=== PATIENT | female | born 1965 | race Caucasian/White ===

== ENCOUNTER 2019-02-06 14:38 | Emergency (ER) | payer OTHER ==
[2019-02-06] MEDS ORDERED: HYDROmorphONE/DILAUDID 2 MG/ML INJ IVP ONE (15:37)
--- NOTE | 2019-02-06 17:00 | EDPHY ---
H & P Stated Complaint: fell down stairs, right ankle pain/swelling Time Seen by Provider: 02/06/19 14:45 HPI/ROS: Chief complaint: Right foot and ankle injury History of present illness: This is a 53-year-old female brought to the emergency department by EMS for evaluation of right foot and ankle injury. Patient was walking down steps into her basement, they are very steep steps, she lost her balance and slipped down them striking her heel against the ground. Since then she has had severe pain. She does not want move the ankle secondary to the pain. She also sustained some scrapes to her arms and legs. She denies pain or trauma to the rest of the body including head, neck, back, chest, abdomen, pelvis or other extremities. Review of systems: A 10 point review of systems was obtained and other than described above was negative. - Personal History Current Tetanus Diphtheria and Acellular Pertussis (TDAP): Unsure - Medical/Surgical History Hx Asthma: No Hx Chronic Respiratory Disease: No Hx Diabetes: No Hx Cardiac Disease: No Hx Renal Disease: No Hx Cirrhosis: No Hx Alcoholism: No Hx HIV/AIDS: No Hx Splenectomy or Spleen Trauma: No Other PMH: tubal , hysterectomy, breast reduction - Social History Smoking Status: Never smoked - Physical Exam Exam: General Appearance: Alert, nontoxic Eyes: PERRLA Respiratory: Lungs clear to auscultation bilaterally Cardiac: Regular rate and rhythm. Gastrointestinal: Bowel sounds normal. Abdomen soft, nondistended, nontender. Neurological: Alert and oriented x4. Strength and sensation intact and symmetrical. Skin: Superficial abrasions to the arms and thighs, no repairable lesions. Musculoskeletal: The head is nontender. There is no crepitus, bony deformity or step-off. The cervical and thoracic spine are nontender without crepitus, bony deformity or step-off. Diffuse tenderness to the lumbar spine without crepitus, bony deformity step-off. Chest wall intact palpation. Upper extremities unremarkable. Mild tenderness to the proximal right lower leg as well as around the ankle. The rest the right lower extremities unremarkable. Constitutional: Initial Vital Signs Temperature (C) 36.7 C 02/06/19 14:45 Heart Rate 56 L 02/06/19 14:45 Respiratory Rate 18 02/06/19 14:45 Blood Pressure 141/89 H 02/06/19 14:45 O2 Sat (%) 95 02/06/19 14:45 O2 Delivery Mode Room Air Allergies/Adverse Reactions: iodine Allergy (Verified 02/06/19 14:45) latex Allergy (Verified 02/06/19 14:45) Home Medications: Medication Instructions Recorded Hydrocodone/APAP [Mindoro 1 tab PO Q6H #15 tab 02/06/19 5/325 (*)] Zithromax 02/06/19 Medical Decision Making - Diagnostics Imaging Results: Imaging Impressions Ankle X-Ray 02/06/19 14:42 Impression: 1. Dorsolateral soft tissue swelling. 2. Fractures involving the calcaneus, as-detailed. There is still preservation of Boehler's angle. Findings were discussed with Elvis Forrester PA-C at 15:11, on 02/06/2019. Lumbar Spine X-Ray 02/06/19 15:35 Impression: 1. No evidence of a lumbar spine fracture or subluxation. 2. Evaluation of the distal coccyx limited by overlying bowel gas and body habitus. Remainder of the sacrum and coccyx appears intact. Sacrum and Coccyx X-Ray 02/06/19 15:35 Impression: 1. No evidence of a lumbar spine fracture or subluxation. 2. Evaluation of the distal coccyx limited by overlying bowel gas and body habitus. Remainder of the sacrum and coccyx appears intact. Tibia/Fibula X-Ray 02/06/19 15:36 Impression: 1. No acute fracture or dislocation the tibia/fibula. 2. Complex fracture of the calcaneus. Imaging: Discussed imaging studies w/ photonics technician Radiologist Procedures: Procedure: Splint placement. A posterior short-leg splint was applied. After application of the splint I returned and re-examined the patient. The splint was adequately immobilizing the joint and distal to the splint the patient's circulation and sensation was intact. ED Course/Re-evaluation: Patient seen under the supervision of my secondary supervising physician Dr. Emerson Singh. Patient presents for a right ankle injury. She appears to have a calcaneal fracture. Her foot is neurovascularly intact. Mild discomfort at other sites of the body x-rayed and unremarkable. By history and physical exam no evidence of further significant trauma. I have consulted with on-call orthopedics, Dr. Rocha's physician medical office receptionist assistant Don. He has reviewed x-rays. He is recommending a posterior short-leg splint. Patient can follow up in clinic in a week. I have discussed this with patient. She is splinted, she is able to get around on crutches. She understands she needs to be absolutely nonweightbearing. Home care is discussed including pain management. Return precautions are given. Differential Diagnosis: Included but not limited to contusion, sprain or strain, bony fracture, doubtful spinal cord injury - Data Points Medications Given: Discontinued Medications Hydrocodone Bitart/Acetaminophen (Mindoro 5/325mg Prepack#6) 1 btl TAKEHOME EDNOW ONE Stop: 02/06/19 17:33 Last Admin: 02/06/19 17:44 Dose: 1 btl Hydromorphone HCl (Dilaudid) 0.5 mg IVP EDNOW ONE Stop: 02/06/19 15:38 Last Admin: 02/06/19 15:42 Dose: 0.5 mg Departure - Departure Disposition: Home, Routine, Self-Care Clinical Impression: Fracture closed, calcaneus Qualifiers: Encounter type: initial encounter Calcaneus location: unspecified portion of calcaneus Fracture alignment: nondisplaced Laterality: right Qualified Code(s): S92.001A - Unspecified fracture of right calcaneus, initial encounter for closed fracture Condition: Fair Instructions: Hydrocodone/Acetaminophen (By mouth), Calcaneal Fracture (ED) Additional Instructions: Please call tomorrow and make a follow-up appointment with orthopedics for re- evaluation in 1 week. In addition You have been prescribed Mindoro for pain. Mindoro]contains Tylenol, do not take extra Tylenol/acetaminophen/Apap with it. It is sedating. Remain nonweightbearing at all times If symptoms worsen or new symptoms develop return to the emergency department for recheck Referrals: Patient,NotPresent [Unknown] - As per Instructions Johny Rocha MD [Medical Doctor] - As per Instructions Prescriptions: Hydrocodone/APAP 5/325 [Mindoro 5/325 (*)] 1 tab PO Q6H #15 tab
[2019-02-06] MEDS ORDERED: HYDROCOD/APAP 5/325 PREPACK#6 BTL TAKEHOME ONE (17:32)
[2019-02-06 17:55] VITALS: BP 124/71
== END 2019-02-06 17:55 | disposition home or self-care (01) ==
LOC: EDUNIT# → EDAGE
PROC: 2W3QX1Z Immobilization of Right Lower Leg using Splint (ICD-10-PCS; principal; 2019-02-06)
DX: S92.001A Unspecified fracture of right calcaneus, initial encounter for closed fracture (principal); W10.8XXA Fall (on) (from) other stairs and steps, initial encounter; Y92.008 Other place in unspecified non-institutional (private) residence as the place of occurrence of the external cause
CPT/HCPCS: 96374; J1170

== ENCOUNTER → 2019-02-10 | Outpatient (CLI) | payer OTHER | LOC: FIMAGING 11:22 | PROVIDERS: ATTEND Orthopaedic Surgery Hand Surgery | DX: S92.061A Displaced intraarticular fracture of right calcaneus, initial encounter for closed fracture (principal) ==

== ENCOUNTER → 2019-02-23 | Outpatient (CLI) | payer OTHER | LOC: BMCIMAGING 14:59 ==

== ENCOUNTER → 2019-03-02 | Outpatient (CLI) | payer OTHER | LOC: BMCIMAGING 12:40 ==

== ENCOUNTER → 2019-03-16 | Outpatient (CLI) | payer OTHER | LOC: BMCIMAGING 07:41 ==